=== PATIENT | female | born 1965 | race Hispanic/Latino ===

== ENCOUNTER → 2021-07-30 | Outpatient (CLI) | payer OTHER | LOC: MAMMO 08:30 | PROVIDERS: ATTEND Internal Medicine | DX: Z12.31 Encounter for screening mammogram for malignant neoplasm of breast (principal) | CPT/HCPCS: 77067 ==

== ENCOUNTER 2021-08-20 13:09 | Inpatient (IN) | payer OTHER ==
[~2021-08-20] VITALS: Ht 139.7 cm; Wt 112.5 kg
[2021-08-20] MEDS ORDERED: ONDANSETRON HCL INJ 2MG/ML 2ML 2 MG/ML VIAL IV STA (13:56)
[2021-08-20] MEDS ORDERED: NITROGLYCERIN 0.4 MG SUBL SL ONE (14:00)
[2021-08-20] MEDS ORDERED: HYDROCODONE/APAP 5MG-325MG TAB PO ONE (14:00)
[2021-08-20 14:46] LABS: BASOPHILS % 0.4 % (0.0-1.0); EOSINOPHILS # (AUTO) 0.1 (0.0-0.4); EOSINOPHILS % 1.5 % (0.0-6.0); HEMATOCRIT 41.5 % (34.2-44.1); HEMOGLOBIN 12.8 g/dL (12.0-16.0); LYMPHOCYTES % 25.7 % (18.0-39.1); MEAN CORPUSCULAR HEMOGLOBIN 27.7 pg (28-32); MEAN CORPUSCULAR HGB CONC 30.8 g/dL (31-35); MEAN CORPUSCULAR VOLUME 89.8 fL (81-99); MONOCYTES # (AUTO) 0.5 (0.2-0.8); MONOCYTES % 6.4 % (4.4-11.3); NEUTROPHILS # (AUTO) 5.1 (2.1-6.9); NEUTROPHILS % 65.7 % (38.7-80.0); PLATELET COUNT 173 x10e3/uL (140-360); RED BLOOD COUNT 4.62 x10e6/uL (3.6-5.1); RED CELL DISTRIBUTION WIDTH 13.6 % (11.7-14.4)
[2021-08-20 15:04] LABS: ALBUMIN 3.7 g/dL (3.5-5.0); ALBUMIN/GLOBULIN RATIO 0.8 (0.8-2.0); ANION GAP 14.7 mmol/L (8-16); CALCIUM 9.4 mg/dL (8.4-10.2); CREATININE, SERUM 0.68 mg/dL (0.57-1.11); POTASSIUM 4.7 mmol/L (3.5-5.1)
[2021-08-20 15:09] LABS: CREATINE KINASE MB 4.4 ng/mL (0-5.0)
[2021-08-20 15:24] LABS: INR 0.93; PROTHROMBIN TIME 13.3 seconds (11.9-14.5)
[2021-08-20 15:25] LABS: PARTIAL THROMBOPLASTIN TIME 26.8 seconds (23.8-35.5)
[2021-08-20] MEDS ORDERED: ONDANSETRON HCL INJ 2MG/ML 2ML 2 MG/ML VIAL IV PRN (16:00)
[2021-08-20] MEDS: SODIUM CHLORIDE 0.9% 1000ML 1,000 ML IV SCH (16:22)
[2021-08-20 17:05] VITALS: BP 112/72
[2021-08-20 20:11] VITALS: BP 117/77
[2021-08-20] MEDS: Morphine 2mg Syringe 2 MG/ML SYR IV PRN ×2 (22:25→23:30)
[2021-08-20 22:38] VITALS: BP 117/77
[2021-08-21] VITALS (9 sets, daily range): BP systolic 107–147; BP diastolic 49–87
[2021-08-21] MEDS ORDERED: ONDANSETRON HCL INJ 2MG/ML 2ML 2 MG/ML VIAL IV PRN (01:30)
[2021-08-21 01:33] LABS: CREATINE KINASE MB 2.9 ng/mL (0-5.0)
[2021-08-21] MEDS: SODIUM CHLORIDE 0.9% 1000ML 1,000 ML IV SCH ×4 (04:00→21:50)
[2021-08-21] MEDS: Morphine 2mg Syringe 2 MG/ML SYR IV PRN ×2 (05:59→10:09)
[2021-08-21 06:18] LABS: BASOPHILS % 0.5 % (0.0-1.0); EOSINOPHILS # (AUTO) 0.1 (0.0-0.4); EOSINOPHILS % 2.1 % (0.0-6.0); HEMATOCRIT 39.3 % (34.2-44.1); HEMOGLOBIN 12.3 g/dL (12.0-16.0); LYMPHOCYTES # (AUTO) 1.3 (1.0-3.2); LYMPHOCYTES % 23.3 % (18.0-39.1); MEAN CORPUSCULAR HEMOGLOBIN 28.1 pg (28-32); MEAN CORPUSCULAR HGB CONC 31.3 g/dL (31-35); MEAN CORPUSCULAR VOLUME 89.7 fL (81-99); MONOCYTES # (AUTO) 0.4 (0.2-0.8); MONOCYTES % 6.5 % (4.4-11.3); NEUTROPHILS # (AUTO) 3.8 (2.1-6.9); NEUTROPHILS % 67.4 % (38.7-80.0); PLATELET COUNT 185 x10e3/uL (140-360); RED BLOOD COUNT 4.38 x10e6/uL (3.6-5.1); RED CELL DISTRIBUTION WIDTH 13.4 % (11.7-14.4)
[2021-08-21 06:47] LABS: ANION GAP 12.1 mmol/L (8-16); CALCIUM 8.6 mg/dL (8.4-10.2); CREATININE, SERUM 0.66 mg/dL (0.57-1.11); POTASSIUM 4.1 mmol/L (3.5-5.1)
[2021-08-21] MEDS ORDERED: PROTONIX20 MG PO (10:05)
[2021-08-21] MEDS ORDERED: LISINOPRIL10 MG PO (10:05)
[2021-08-21] MEDS ORDERED: HYDROCHLOROTH12.5 MG PO (10:05)
[2021-08-21] MEDS ORDERED: METFORMIN HCL500 MG PO (10:05)
[2021-08-21] MEDS ORDERED: LIDOCAINE 4% PATCH TP PRN (12:30)
[2021-08-21] MEDS ORDERED: BENZONATATE 100 MG CAP PO PRN (12:30)
[2021-08-21] MEDS ORDERED: DIPHENHYDRAMINE HCL 25 MG CAP PO PRN (12:30)
[2021-08-21] MEDS ORDERED: HYDROCODONE/APAP 5MG-325MG TAB PO PRN (12:30)
[2021-08-21] MEDS ORDERED: SIMETHICONE 80 MG CHEW PO PRN (12:30)
[2021-08-21] MEDS ORDERED: HYDRALAZINE HCL 20 MG/ML VIAL IV PRN (12:30)
[2021-08-21] MEDS ORDERED: DEXTROSE 50% SYRINGE 50 ML IV PRN ×2 (12:30)
[2021-08-21] MEDS ORDERED: MELATONIN 5 MG TABLET PO PRN (12:30)
[2021-08-21] MEDS ORDERED: ALBUTEROL/IPRATROPIUM 3 ML NEB NEB PRN (12:30)
[2021-08-21] MEDS ORDERED: POTASSIUM CHLORIDE 20 MEQ TAB CR PO PRN (12:30)
[2021-08-21] MEDS ORDERED: DOCUSATE SODIUM 100 MG CAP PO PRN (12:30)
[2021-08-21] MEDS: ACETAMINOPHEN 325 MG TAB PO PRN (12:30)
[2021-08-21] MEDS ORDERED: ASPIRIN 325 MG TAB EC PO ONE (14:00)
[2021-08-21] MEDS: ENOXAPARIN SOD INJ 40 MG/0.4 ML SYR SC SCH (17:24)
[2021-08-21 17:49] LABS: CREATINE KINASE MB 2.7 ng/mL (0-5.0)
[2021-08-21] MEDS: ATORVASTATIN 40 MG TAB PO SCH (21:40)
[2021-08-22] VITALS: BP 150/90
[2021-08-22 04:00] VITALS: BP 188/91
[2021-08-22] MEDS: PANTOPRAZOLE SOD 40 MG TABEC PO SCH (05:00)
[2021-08-22 05:45] LABS: BASOPHILS % 0.1 % (0.0-1.0); EOSINOPHILS # (AUTO) 0.1 (0.0-0.4); EOSINOPHILS % 1.4 % (0.0-6.0); HEMATOCRIT 40.9 % (34.2-44.1); HEMOGLOBIN 12.7 g/dL (12.0-16.0); LYMPHOCYTES # (AUTO) 1.4 (1.0-3.2); LYMPHOCYTES % 18.3 % (18.0-39.1); MEAN CORPUSCULAR HEMOGLOBIN 27.9 pg (28-32); MEAN CORPUSCULAR HGB CONC 31.1 g/dL (31-35); MEAN CORPUSCULAR VOLUME 89.9 fL (81-99); MONOCYTES # (AUTO) 0.4 (0.2-0.8); MONOCYTES % 4.7 % (4.4-11.3); NEUTROPHILS # (AUTO) 5.8 (2.1-6.9); NEUTROPHILS % 75.2 % (38.7-80.0); PLATELET COUNT 181 x10e3/uL (140-360); RED BLOOD COUNT 4.55 x10e6/uL (3.6-5.1); RED CELL DISTRIBUTION WIDTH 13.2 % (11.7-14.4)
[2021-08-22 06:04] LABS: ANION GAP 13.1 mmol/L (8-16); CALCIUM 9.1 mg/dL (8.4-10.2); CHOL/HDL RATIO 3.3 (3.0-3.6); CREATININE, SERUM 0.61 mg/dL (0.57-1.11); MAGNESIUM 1.9 MG/DL (1.3-2.1); PHOSPHORUS 2.7 MG/DL (2.3-4.7); POTASSIUM 4.1 mmol/L (3.5-5.1)
[2021-08-22 06:31] LABS: FERRITIN 70.75 ng/mL (4.63-204.00); THYROID STIMULATING HORMONE 0.904 uIU/mL (0.350-4.940)
[2021-08-22 08:00] VITALS: BP 197/85
[2021-08-22] MEDS ORDERED: HEPARIN SOD/SOD CHLORIDE 2,000 ML ONE (08:21)
[2021-08-22] MEDS ORDERED: HEPARIN SOD (PORCINE) 1000 UNIT/ML 30ML ONE (08:21)
[2021-08-22] MEDS ORDERED: LIDOCAINE HCL 2% LOCAL 20 ML VIAL ONE (08:21)
[2021-08-22] MEDS ORDERED: IOPAMIDOL 370 MG/ML 100 ML INFUS..BTL INJ ONE ×2 (08:22→09:34)
[2021-08-22] MEDS ORDERED: NITROGLYCERIN/D5W 200 MCG/ML 250 ML ONE (08:22)
[2021-08-22] MEDS ORDERED: SODIUM CHLORIDE 0.9% 1000ML 1,000 ML ONE (08:22)
[2021-08-22] MEDS ORDERED: VERAPAMIL HCL 2.5 MG/ML 2 ML VIAL ONE ×2 (08:23)
[2021-08-22] MEDS: ASPIRIN 81 MG ENTERIC COATED PO SCH (09:00)
[2021-08-22] MEDS ORDERED: FENTANYL CITRATE/PF 100MCG/2 ML INJ ONE (09:03)
[2021-08-22] MEDS ORDERED: MIDAZOLAM HCL 2 MG/2 ML VIAL ONE (09:03)
[2021-08-22] MEDS: ACETAMINOPHEN 325 MG TAB PO PRN (12:07)
[2021-08-22] MEDS ORDERED: NON-FORMULARY MEDICATION (Hydrochlorothiazide 25 MG) PO SCH (14:00)
[2021-08-22] MEDS ORDERED: PANTOPRAZOLE SOD 40 MG TABEC PO SCH (14:00)
[2021-08-22 16:00] VITALS: BP 123/52
[2021-08-22] MEDS: LISINOPRIL 20 MG TAB PO SCH (17:18)
[2021-08-22] MEDS: ENOXAPARIN SOD INJ 40 MG/0.4 ML SYR SC SCH (17:18)
[2021-08-22] MEDS: HYDROCHLOROTHIAZIDE 25 MG TAB PO SCH (17:19)
[2021-08-22 20:00] VITALS: BP 141/72
[2021-08-22] MEDS: SODIUM CHLORIDE 0.9% 1000ML 1,000 ML IV SCH (20:58)
[2021-08-22] MEDS: ATORVASTATIN 40 MG TAB PO SCH (21:00)
[2021-08-23 00:04] VITALS: BP 133/67
[2021-08-23 04:01] VITALS: BP 154/81
[2021-08-23 08:15] VITALS: BP 136/69
[2021-08-23] MEDS: ASPIRIN 81 MG ENTERIC COATED PO SCH (09:57)
[2021-08-23] MEDS: PANTOPRAZOLE SOD 40 MG TABEC PO SCH (09:57)
[2021-08-23] MEDS: HYDROCHLOROTHIAZIDE 25 MG TAB PO SCH (09:57)
[2021-08-23] MEDS: LISINOPRIL 20 MG TAB PO SCH (09:58)
[2021-08-23] MEDS: SODIUM CHLORIDE 0.9% 1000ML 1,000 ML IV SCH (10:18)
[2021-08-23 11:46] VITALS: BP 136/78
[2021-08-23] MEDS ORDERED: ONDANSETRON HCL 4 MG ORAL DISINTEGRATING TAB PO PRN (12:30)
[2021-08-23] MEDS ORDERED: SODIUM CHLORIDE 0.9% 50ML 50 ML ONE (12:56)
[2021-08-23] MEDS ORDERED: IOPAMIDOL 370 MG/ML 100 ML INFUS..BTL INJ ONE (12:56)
== END 2021-08-23 14:16 | disposition home or self-care (01) | DRG 287 ==
LOC: ER 13:34 → ERHOLD 15:58 → MED/SURG3 16:50
PROVIDERS: ADMIT Internal Medicine; ATTEND Internal Medicine
PROC: 4A023N7 Measurement of Cardiac Sampling and Pressure, Left Heart, Percutaneous Approach (ICD-10-PCS; principal; 2021-08-22)
PROC: B2111ZZ Fluoroscopy of Multiple Coronary Arteries using Low Osmolar Contrast (ICD-10-PCS; 2021-08-22)
PROC: B2151ZZ Fluoroscopy of Left Heart using Low Osmolar Contrast (ICD-10-PCS; 2021-08-22)
DX: R07.89 Other chest pain (principal); Z68.43 Body mass index [BMI] 50.0-59.9, adult; E66.01 Morbid (severe) obesity due to excess calories; E78.5 Hyperlipidemia, unspecified; E11.9 Type 2 diabetes mellitus without complications; Z91.19 Patient's noncompliance with other medical treatment and regimen; K21.9 Gastro-esophageal reflux disease without esophagitis; Z20.822 Contact with and (suspected) exposure to COVID-19; Z88.0 Allergy status to penicillin; R94.39 Abnormal result of other cardiovascular function study
CPT/HCPCS: 36415; 71045; 71260; 80048; 80053; 80061; 82550; 82553; 82728; 82948; 83036; 83735; 83880; 84100; 84443; 84484; 85025; 85610; 85730; 93005; 93306; 94799; 96361; 99153; 99284; C1887; J1644; J1650; J2001; J2250; J2270; J2405; J3010; J7030; Q9967; U0002

== ENCOUNTER → 2024-02-08 | Day surgery (SDC) | payer OTHER ==
[~2024-02-08] MED LIST: ACETAMINOPHEN-1 EAC3 PO; Acetamin/Butalbital/Caffeine PO; Acetaminophen Supp PR; CEFDINIR300 MG PO; CEFTRIAXON2 GM/50 ML IVP; DEXTROSE 50%-WA50 M1 IV; ESIDRIX25 MG PO; FAMOTIDINE20 MG PO; Ferrous Sulfate PO; GLYCOPYRROLATE INJ 0.2 MG/ML VIAL ONE; HUMULIN R100 UNIT/2 SQ; HYDROCHLOROTH12.5 MG PO; HYDROCHLOROTHIA25 MG PO; HYDROCODON-ACE1 EA11 PO; HYOSCYAMINE SULFATE 0.5 MG/ML INJ ONE; Hydromorphone 1MG/1ML Inj IV; KETAMINE HCL INJ 50 MG/ML 10 ML VIAL ONE; LACTATED RING1000 ML IV; LACTATED RINGER'S 1,000 ML ONE; LIDOCAINE HCL 2% LOCAL INJ 5 ML SDV VIAL INJ ONE; LIPITOR10 MG PO; LISINOPRIL10 MG PO; METFORMIN HCL500 MG PO; METRONIDAZ500 MG/100 IV; METRONIDAZOLE500 MG PO; ONDANSETRON ODT4 MG PO; ONDANSETRON4 MG/2 M1 IV; PANTOPRAZOLE SO20 MG PO; PANTOPRAZOLE SO40 MG PO; PROPOFOL IV EMULSION 10 MG/ML 20 ML VIAL ONE; PROTONIX IV40 MG IV; PROTONIX20 MG PO; TYLENOL #3 PO; ZESTRIL10 MG PO
[2024-02-08 11:45] VITALS: TEMP 97.1
[2024-02-08 12:30] VITALS: BP 125/86; PULSE 70; RESP 16; O2SAT 98
== END | disposition home or self-care (01) ==
LOC: EDSEX 09:59 → MERGE 09:59 → OR 09:59
PROVIDERS: ATTEND Internal Medicine Gastroenterology
DX: R19.5 Other fecal abnormalities (principal); K59.00 Constipation, unspecified; K62.89 Other specified diseases of anus and rectum; K64.8 Other hemorrhoids; K21.9 Gastro-esophageal reflux disease without esophagitis; D64.9 Anemia, unspecified; E11.9 Type 2 diabetes mellitus without complications; I10 Essential (primary) hypertension; E78.5 Hyperlipidemia, unspecified; E66.01 Morbid (severe) obesity due to excess calories; M06.9 Rheumatoid arthritis, unspecified; F41.9 Anxiety disorder, unspecified; Z88.0 Allergy status to penicillin; Z01.810 Encounter for preprocedural cardiovascular examination; Z79.84 Long term (current) use of oral hypoglycemic drugs; Z79.899 Other long term (current) drug therapy
CPT/HCPCS: 45378; 74018; 93005; J1980; J2001; J2704; J7121

== ENCOUNTER → 2024-02-16 | Outpatient (REF) | payer OTHER ==
[~2024-02-16] MED LIST changes: -GLYCOPYRROLATE INJ 0.2 MG/ML VIAL ONE; -HYOSCYAMINE SULFATE 0.5 MG/ML INJ ONE; -KETAMINE HCL INJ 50 MG/ML 10 ML VIAL ONE; -LACTATED RINGER'S 1,000 ML ONE; -LIDOCAINE HCL 2% LOCAL INJ 5 ML SDV VIAL INJ ONE; -PROPOFOL IV EMULSION 10 MG/ML 20 ML VIAL ONE
== END ==
LOC: DX 09:12 → MERGE 09:12
PROVIDERS: ATTEND Internal Medicine Gastroenterology
DX: K57.30 Diverticulosis of large intestine without perforation or abscess without bleeding (principal)
CPT/HCPCS: 74280

== ENCOUNTER → 2024-04-11 | Outpatient (REF) | payer OTHER | LOC: DX 08:19 | PROVIDERS: ATTEND Nurse Practitioner | DX: Z12.11 Encounter for screening for malignant neoplasm of colon (principal); R19.5 Other fecal abnormalities | CPT/HCPCS: 74270 ==

== ENCOUNTER 2024-07-24 02:35 | Inpatient (IN) | payer OTHER ==
[~2024-07-24] VITALS: Ht 152.4 cm; Wt 102.1 kg
[2024-07-24] VITALS (8 sets, daily range): BP systolic 98–142; BP diastolic 63–87; PULSE 65–79; RESP 16–20; TEMP 97.8–99.3; O2SAT 99–100
[2024-07-24] MEDS: SODIUM CHLORIDE 0.9% 1000ML 1,000 ML IV ONE (03:35)
[2024-07-24] MEDS: ONDANSETRON HCL INJ 2MG/ML 2ML 2 MG/ML VIAL IV STA (03:35)
[2024-07-24] MEDS: Morphine 4mg INJECTION 4 MG/ML INJ IV ONE (03:35)
[2024-07-24 03:57] LABS: BASOPHILS % 0.3 % (0.0-1.0); EOSINOPHILS # (AUTO) 0.1 (0.0-0.4); EOSINOPHILS % 0.7 % (0.0-6.0); HEMATOCRIT 42.3 % (34.2-44.1); HEMOGLOBIN 13.7 g/dL (12.0-16.0); LYMPHOCYTES % 8.6 % (18.0-39.1); MEAN CORPUSCULAR HEMOGLOBIN 27.5 pg (28-32); MEAN CORPUSCULAR HGB CONC 32.4 g/dL (31-35); MEAN CORPUSCULAR VOLUME 84.8 fL (81-99); MONOCYTES # (AUTO) 0.6 (0.2-0.8); MONOCYTES % 5.5 % (4.4-11.3); NEUTROPHILS # (AUTO) 9.4 (2.1-6.9); NEUTROPHILS % 84.6 % (38.7-80.0); PLATELET COUNT 257 x10e3/uL (140-360); RED BLOOD COUNT 4.99 x10e6/uL (3.6-5.1); RED CELL DISTRIBUTION WIDTH 13.9 % (11.7-14.4); WHITE BLOOD COUNT 11.13 x10e3/uL (4.8-10.8)
[2024-07-24 04:08] LABS: CLARITY,URINE CLOUDY (CLEAR); COLOR,URINE YELLOW (YELLOW); GLUCOSE, URINE NEGATIVE (NEGATIVE); KETONES,URINE TRACE (NEGATIVE); LEUKOCYTE ESTERASE ,URINE TRACE (NEGATIVE); NITRITE,URINE NEGATIVE (NEGATIVE); PH,URINE 5.5 (5 - 7); PROTEIN,URINE DIPSTICK 1+ (NEGATIVE)
[2024-07-24 04:09] LABS: BILIRUBIN,URINE 1+ (NEGATIVE); URINE UROBILINOGEN 0.2 mg/dL (0.2 - 1)
[2024-07-24 04:14] LABS: BACTERIA,URINE MANY /HPF; EPITHELIAL CELLS,URINE MANY /LPF
[2024-07-24 04:19] LABS: ALBUMIN 4.1 g/dL (3.5-5.0); ANION GAP 19.5 mmol/L (8-16); BILIRUBIN,TOTAL 2.9 mg/dL (0.2-1.2); CALCIUM 10.4 mg/dL (8.4-10.2); CREATININE, SERUM 0.82 mg/dL (0.57-1.11); POTASSIUM 4.5 mmol/L (3.5-5.1); TOTAL PROTEIN 8.1 g/dL (6.5-8.1)
[2024-07-24] MEDS ORDERED: IOPAMIDOL 370 MG/ML 100 ML INFUS..BTL INJ ONE (04:24)
[2024-07-24] MEDS: SODIUM CHLORIDE 0.9% 250ML IRRIG IR SCH (05:45)
[2024-07-24] MEDS ORDERED: ATORVASTATIN CA20 MG PO (09:19)
[2024-07-24] MEDS ORDERED: ESIDRIX25 MG PO (09:19)
[2024-07-24] MEDS ORDERED: FAMOTIDINE20 MG PO (09:19)
[2024-07-24] MEDS ORDERED: LISINOPRIL40 MG PO (09:19)
[2024-07-24] MEDS ORDERED: METFORMIN HCL500 MG PO (09:19)
[2024-07-24] MEDS ORDERED: VITAMIN D PO (09:19)
[2024-07-24] MEDS: SODIUM CHLORIDE 0.9% 1000ML 1,000 ML IV SCH (10:05)
[2024-07-24] MEDS: Morphine 2mg Syringe 2 MG/ML SYR IV PRN (10:11)
[2024-07-24] MEDS ORDERED: ACETAMINOPHEN 325 MG TAB PO PRN (14:00)
[2024-07-24] MEDS ORDERED: HYDRALAZINE HCL 20 MG/ML VIAL IV PRN (14:00)
[2024-07-24] MEDS ORDERED: ALBUTEROL/IPRATROPIUM 3 ML NEB NEB PRN (14:00)
[2024-07-24] MEDS ORDERED: DIPHENHYDRAMINE HCL 25 MG CAP PO PRN (14:00)
[2024-07-24] MEDS ORDERED: SIMETHICONE 80 MG CHEW PO PRN (14:00)
[2024-07-24] MEDS ORDERED: DEXTROSE 50% SYRINGE 50 ML IV PRN (14:00)
[2024-07-24] MEDS ORDERED: BENZONATATE 100 MG CAP PO PRN (14:00)
[2024-07-24] MEDS ORDERED: DOCUSATE SODIUM 100 MG CAP PO PRN (14:00)
[2024-07-24] MEDS ORDERED: POTASSIUM CHLORIDE 20 MEQ TAB CR PO PRN (14:00)
[2024-07-24] MEDS ORDERED: LIDOCAINE 4% PATCH TP PRN (14:00)
[2024-07-24] MEDS: DEXTROSE 5%/0.9% SOD CHL 1,000 ML IV SCH (14:53)
[2024-07-24] MEDS: ENOXAPARIN SOD INJ 40 MG/0.4 ML SYR SC SCH (17:18)
[2024-07-24] MEDS ORDERED: MELATONIN 5 MG TABLET PO PRN (21:00)
[2024-07-25 03:46] VITALS: BP 117/80; PULSE 68; RESP 19; TEMP 98.7; O2SAT 98
[2024-07-25 05:43] LABS: ALBUMIN 3.1 g/dL (3.5-5.0); ANION GAP 12.6 mmol/L (8-16); BILIRUBIN,TOTAL 1.8 mg/dL (0.2-1.2); CALCIUM 8.5 mg/dL (8.4-10.2); CREATININE, SERUM 0.71 mg/dL (0.57-1.11); POTASSIUM 3.6 mmol/L (3.5-5.1); TOTAL PROTEIN 6.2 g/dL (6.5-8.1)
[2024-07-25 06:55] LABS: BASOPHILS % 0.3 % (0.0-1.0); EOSINOPHILS # (AUTO) 0.1 (0.0-0.4); EOSINOPHILS % 1.7 % (0.0-6.0); HEMATOCRIT 34.6 % (34.2-44.1); HEMOGLOBIN 11.1 g/dL (12.0-16.0); LYMPHOCYTES # (AUTO) 1.1 (1.0-3.2); LYMPHOCYTES % 15.5 % (18.0-39.1); MEAN CORPUSCULAR HEMOGLOBIN 27.5 pg (28-32); MEAN CORPUSCULAR HGB CONC 32.1 g/dL (31-35); MEAN CORPUSCULAR VOLUME 85.6 fL (81-99); MONOCYTES # (AUTO) 0.6 (0.2-0.8); MONOCYTES % 8.6 % (4.4-11.3); NEUTROPHILS # (AUTO) 5.1 (2.1-6.9); NEUTROPHILS % 73.6 % (38.7-80.0); PLATELET COUNT 204 x10e3/uL (140-360); RED BLOOD COUNT 4.04 x10e6/uL (3.6-5.1); RED CELL DISTRIBUTION WIDTH 14.1 % (11.7-14.4); WHITE BLOOD COUNT 6.86 x10e3/uL (4.8-10.8)
[2024-07-25] MEDS: PANTOPRAZOLE SOD 40 MG TABEC PO SCH (07:30)
[2024-07-25 08:43] VITALS: BP 115/74; PULSE 72; RESP 17; TEMP 98.7; O2SAT 97
[2024-07-25 09:09] VITALS: BP 115/74; PULSE 72; RESP 17; TEMP 98.7; O2SAT 97
[2024-07-25] MEDS: CHLORASEPTIC SPRAY 177 ML BTL MM PRN (18:18)
[2024-07-25 20:19] VITALS: BP 141/74; PULSE 78; RESP 19; TEMP 98; O2SAT 98
[2024-07-25 20:20] VITALS: BP 141/74; PULSE 78; RESP 19; TEMP 98; O2SAT 98
[2024-07-25] MEDS: BISACODYL 10 MG SUPP PR SCH (20:32)
[2024-07-25 23:22] VITALS: BP 117/65; PULSE 67; RESP 16; TEMP 98.1; O2SAT 98
[2024-07-25] MEDS: ONDANSETRON HCL INJ 2MG/ML 2ML 2 MG/ML VIAL IV PRN (23:39)
[2024-07-26 04:51] VITALS: BP 128/62; PULSE 81; RESP 17; TEMP 98; O2SAT 98
[2024-07-26 05:35] LABS: BASOPHILS % 0.3 % (0.0-1.0); EOSINOPHILS # (AUTO) 0.1 (0.0-0.4); EOSINOPHILS % 1.8 % (0.0-6.0); HEMATOCRIT 35.7 % (34.2-44.1); HEMOGLOBIN 11.1 g/dL (12.0-16.0); LYMPHOCYTES # (AUTO) 1.1 (1.0-3.2); LYMPHOCYTES % 17.3 % (18.0-39.1); MEAN CORPUSCULAR HEMOGLOBIN 27.5 pg (28-32); MEAN CORPUSCULAR HGB CONC 31.1 g/dL (31-35); MEAN CORPUSCULAR VOLUME 88.4 fL (81-99); MONOCYTES # (AUTO) 0.6 (0.2-0.8); MONOCYTES % 8.6 % (4.4-11.3); NEUTROPHILS # (AUTO) 4.7 (2.1-6.9); NEUTROPHILS % 71.8 % (38.7-80.0); PLATELET COUNT 184 x10e3/uL (140-360); RED BLOOD COUNT 4.04 x10e6/uL (3.6-5.1); RED CELL DISTRIBUTION WIDTH 13.6 % (11.7-14.4); WHITE BLOOD COUNT 6.59 x10e3/uL (4.8-10.8)
[2024-07-26 06:09] LABS: ANION GAP 13.5 mmol/L (8-16); CALCIUM 8.4 mg/dL (8.4-10.2); CREATININE, SERUM 0.65 mg/dL (0.57-1.11); POTASSIUM 3.5 mmol/L (3.5-5.1)
[2024-07-26 08:00] VITALS: BP 121/70; PULSE 70; RESP 19; TEMP 98.8; O2SAT 100
[2024-07-26 12:12] VITALS: BP 138/75; PULSE 69; RESP 19; TEMP 98.5; O2SAT 100
[2024-07-26 15:59] VITALS: BP 140/68; PULSE 66; RESP 19; TEMP 98.3; O2SAT 100
[2024-07-26] MEDS: MUPIROCIN 2% OINT 22 GM TUBE TOP SCH (18:00)
[2024-07-26 20:00] VITALS: BP 125/64; PULSE 56; RESP 18; TEMP 97.9; O2SAT 100
[2024-07-26 20:30] VITALS: BP 125/64; PULSE 56; RESP 18; TEMP 97.9; O2SAT 100
[2024-07-26] MEDS: BISACODYL 10 MG SUPP PR SCH (21:03)
[2024-07-27] VITALS (7 sets, daily range): BP systolic 110–133; BP diastolic 68–95; PULSE 56–62; RESP 18–19; TEMP 97.5–98.7; O2SAT 95–100
[2024-07-27 05:36] LABS: BASOPHILS % 0.2 % (0.0-1.0); EOSINOPHILS # (AUTO) 0.2 (0.0-0.4); EOSINOPHILS % 3.5 % (0.0-6.0); HEMATOCRIT 34.4 % (34.2-44.1); HEMOGLOBIN 10.8 g/dL (12.0-16.0); LYMPHOCYTES # (AUTO) 1.1 (1.0-3.2); LYMPHOCYTES % 20.1 % (18.0-39.1); MEAN CORPUSCULAR HEMOGLOBIN 27.6 pg (28-32); MEAN CORPUSCULAR HGB CONC 31.4 g/dL (31-35); MEAN CORPUSCULAR VOLUME 87.8 fL (81-99); MONOCYTES # (AUTO) 0.4 (0.2-0.8); MONOCYTES % 7.8 % (4.4-11.3); NEUTROPHILS # (AUTO) 3.7 (2.1-6.9); PLATELET COUNT 195 x10e3/uL (140-360); RED BLOOD COUNT 3.92 x10e6/uL (3.6-5.1); RED CELL DISTRIBUTION WIDTH 13.5 % (11.7-14.4); WHITE BLOOD COUNT 5.48 x10e3/uL (4.8-10.8)
[2024-07-27 06:02] LABS: ANION GAP 11.4 mmol/L (8-16); CALCIUM 8.4 mg/dL (8.4-10.2); CREATININE, SERUM 0.65 mg/dL (0.57-1.11); POTASSIUM 3.4 mmol/L (3.5-5.1)
[2024-07-27] MEDS: SODIUM CHLORIDE 0.9% 1000ML 1,000 ML IV SCH (21:24)
[2024-07-28 04:00] VITALS: BP 135/74; PULSE 51; RESP 18; TEMP 98.3; O2SAT 97
[2024-07-28 08:20] VITALS: BP 122/58; PULSE 75; RESP 18; TEMP 98.2; O2SAT 100
[2024-07-28 08:35] VITALS: BP 122/58; PULSE 75; RESP 18; TEMP 98.2; O2SAT 100
[2024-07-28 12:40] VITALS: PULSE 105; RESP 18; O2SAT 95
[2024-07-28 20:10] VITALS: PULSE 81; RESP 18; O2SAT 95
[2024-07-29 07:31] VITALS: PULSE 86; RESP 18; O2SAT 96
== END 2024-07-28 19:30 | disposition home or self-care (01) | DRG 389 ==
LOC: ER 02:39 → ERHOLD 05:38 → MERGE 05:38 → MED/SURG 08:35
PROVIDERS: ADMIT Internal Medicine; ATTEND Internal Medicine
PROC: 02HV33Z Insertion of Infusion Device into Superior Vena Cava, Percutaneous Approach (ICD-10-PCS; principal; 2024-07-26)
DX: K56.609 Unspecified intestinal obstruction, unspecified as to partial versus complete obstruction (principal); E66.01 Morbid (severe) obesity due to excess calories; Z68.41 Body mass index [BMI] 40.0-44.9, adult; E11.9 Type 2 diabetes mellitus without complications; I10 Essential (primary) hypertension; E78.5 Hyperlipidemia, unspecified; K43.9 Ventral hernia without obstruction or gangrene; Z79.84 Long term (current) use of oral hypoglycemic drugs
CPT/HCPCS: 36415; 36569; 71045; 74018; 74022; 74177; 80048; 80053; 81001; 82948; 83690; 83735; 85025; 87086; 94799; 99285; J0696; J1650; J2270; J2405; J2470; J7030; J7042; Q9967